=== PATIENT | male | born 1950 | race Caucasian/White ===

== ENCOUNTER 2019-11-15 18:41 | Observation (INO) ==
--- NOTE | 2019-11-15 19:26 | PROVIDER DOCUMENTATION ---
HPI-Rash/Wound/ReCheck - General Chief Complaint: Wound Recheck Stated Complaint: RECHECK-NAIL IN FOOT Time Seen by Provider: 11/15/19 19:18 Source: patient Allergies/Adverse Reactions: Allergies Allergy/AdvReac Type Severity Reaction Status Date / Time No Known Allergies Allergy Verified 11/15/19 20:07 Home Medications: Home Medication List Medication Instructions Recorded Confirmed Last Taken Type NK [No Home Medications] 11/15/19 11/15/19 Unknown History - History of Present Illness-Dermatology Nature of Presenting Problem: 69 YOM with DM presents with c/o worsening redness, pain and now drainage to the R foot after stepping on a nail 6 wks ago. He was given tdap and clina which has been completed. He denies fever, chills, n/v/d, CP, SOB Location: reports: feet (R) Quality: reports: painful Severity: reports: moderate Onset/Duration: reports: 1 week ago (intial injury 6 wks ago) Timing: reports: still present Context/Associated Symptoms: reports: stab wound (from nail) Identifiable cause?: Yes (stepped on a nail ) Locality of Occurance: Home Similar Symptoms Previously?: Yes Recently seen or treated by another doctor?: Yes (6 wks ago for inital tx) Review of Systems - Adult - REVIEW OF SYSTEMS - ADULT Constitutional: reports: no symptoms reported. denies: chills, fever Eyes: reports: no symptoms reported. denies: see HPI, discharge, dry eyes, decreased vision, blurred vision, double vision, eye pain, redness, other Ears, Nose, Mouth & Throat: reports: no symptoms reported. denies: see HPI, ear discharge, ear pain, hearing loss, tinnitus, epistaxis, sinus problem, nose pain, loose teeth, mouth/dental pain, mouth swelling, hoarseness, throat pain, throat swelling, other Cardiovascular: reports: no symptoms reported. denies: see HPI, chest pain, edema, heart murmur, irregular heart rate, orthopnea, palpitations, poor circulation, PND, syncope, other Respiratory: reports: no symptoms reported. denies: see HPI, chronic cough, cough, dyspnea on exertion, excessive sputum production, hemoptysis, pleurisy, shortness of breath, wheezing, other Gastrointestinal: reports: no symptoms reported. denies: see HPI, abdominal pain, hematemesis, constipation, diarrhea, difficulty swallowing, frequent heart burn, nausea, poor appetite, rectal bleeding, vomiting, other Genitourinary: reports: no symptoms reported. denies: see HPI, dysuria, discharge, frequency, flank pain, frequent UTI's, hematuria, hesitency, incontinence, urinary retention, urgency, other Musculoskeletal: reports: no symptoms reported. denies: see HPI, bone pain, back pain, frequent leg cramps, joint pain, joint swelling, muscle aches, muscle weakness, neck pain, other Integumentary: reports: see HPI, skin sores/ulcer. denies: no symptoms reported, hives, hair loss, itching, mole changes, nail changes, rash, skin thickening, other Neurological: reports: no symptoms reported. denies: see HPI, ataxia, dizziness/vertigo, headache/migraines, loss of balance, numbness, paresthesia, seizure, slurred speech, syncope, tremors, other Psychiatric: reports: no symptoms reported. denies: see HPI, anxiety, anti- depressant use, alcohol/drug dependence, depression, emotional problems, insomnia, panic attacks, suicidal thoughts, other Endocrine: reports: no symptoms reported. denies: see HPI, change in skin pigment, excessive sweating, goiter, cold intolerance, heat intolerance, increased hunger, increased thirst, polyuria, other Hematologic/Lymphatic: reports: no symptoms reported. denies: see HPI, blood clots, easy bruising, low blood count, lymphedema, prolonged bleeding, swollen lymph nodes, transfusions, other Allergic/Immunologic: reports: no symptoms reported. denies: see HPI, allergic reactions, allergic rhinitis, asthma, eczema, food allergy, frequent infections, hay fever, hives, positive PPD, urticaria, other Past History - Adult - PAST MEDICAL HISTORY-ADULT Review of Records: reports: Old Records Reviewed, Nursing Assessment Review, Social history reviewed & non-contributory. Major Childhood Illnesses: reports: denies history Cardiovascular: reports: HTN Respiratory: reports: denies history Gastrointestinal: reports: denies history Obstetrical/Gynecological: reports: denies history Genitourinary: reports: denies history Musculoskeletal: reports: denies history Neurological: reports: denies history Endocrine/Immune: reports: Diabetes Other Conditions: reports: denies history - PRIOR SURGERIES/PROCEDURES Surgical/Procedure History: reports: reviewed, not pertinent - IMMUNIZATION STATUS Childhood Immunizations: See Nurse Assessment Flu Vaccine: See Nurse Assessment - FAMILY HISTORY Family History: reviewed, not pertinent Physical Exam-General - PHYSICAL EXAM-ADULT Initial Vital Signs Reviewed: Yes - CONSTITUTIONAL General Appearance: appears well, alert, no apparent distress - EYES Eyes: PERRL/EOMI, pink conjunctivae - HEAD, EARS, NOSE, MOUTH & THROAT HENMT: normocephalic/atraumatic, moist mucous membranes, normal ENT inspection - NECK Neck: non-tender, full range of motion, supple - RESPIRATORY Respiratory: chest non-tender, lungs clear, normal breath sounds, no pleuratic chest pain, no respiratory distress, no accessory muscle use - CARDIOVASCULAR Cardiovascular: normal peripheral pulses, regular rate, rhythm, no edema, no gallop, no JVD, no murmur - GASTROINTESTINAL (ABDOMEN) Abdominal Exam: normal bowel sounds, non tender, soft, no organomegaly, no pulsatile mass - LYMPHATIC Lymphatic: no adenopathy - MUSCULOSKELETAL Back Exam: normal inspection, no CVA tenderness, no vertebral tenderness Extremity: no calf tenderness, normal capillary refill, erythema (R foot), pedal edema (R foot), swelling (R foot), tenderness (R foot). negative: slow capillary refill Peripheral Pulses: radial (R): 2+, radial (L): 2+ - SKIN Integumentary: normal color, normal turgor, warm/dry - NEUROLOGIC Neurologic: grossly normal, abnormal senior account representative II-XII, motor weakness - PSYCHIATRIC Psych/Mental Status: normal mood/affect, oriented x 3 Progress - PLAN OF CARE/RESULTS Progress/Plan/Lab Results: Vital Signs - 8 hr 11/15/19 18:58 11/15/19 20:53 11/15/19 21:50 Temperature 98.7 F 99.6 F 99.1 F Pulse Rate 95 H 99 H 81 Respiratory Rate 16 27 H 25 H Blood Pressure 161/85 158/86 147/90 O2 Sat by Pulse Oximetry 95 93 L 95 Laboratory Results - last 24 hr 11/15/19 11/15/19 11/15/19 20:28 20:28 20:28 WBC 10.24 RBC 5.49 Hgb 17.9 Hct 49.8 MCV 90.7 MCH 32.6 H MCHC 35.9 RDW Std Deviation 13.5 Plt Count 204 MPV 11.0 H Neut % (Auto) 76.0 H Lymph % (Auto) 13.5 L Kay % (Auto) 7.8 Eos % (Auto) 2.5 Baso % (Auto) 0.2 Neut # (Auto) 7.78 H Lymph # (Auto) 1.38 Kay # (Auto) 0.80 H Eos # (Auto) 0.26 Baso # (Auto) 0.02 Sodium 137 Potassium 3.3 L Chloride 95 L Carbon Dioxide 26 Anion Gap 16 BUN 5 L Creatinine 0.6 L Estimated GFR/1.73 m2 > 60 BUN/Creatinine Ratio 8 Glucose 341 H Calculated Osmolality 285 Calcium 9.5 Total Bilirubin 0.69 AST 11 ALT 15 Alkaline Phosphatase 124 H Total Protein 7.1 Albumin 4.3 Globulin 2.8 Albumin/Globulin Ratio 1.5 Plasma Lactate 1.1 Orders Category Date Time Status FOOT COMPLETE LEFT [RAD] Stat Exams 11/15/19 19:21 Completed BLOOD CULTURE [BLDCUL] Stat Lab 11/15/19 20:28 Results CBC WITH ELECTRONIC DIFF [HEME] Stat Lab 11/15/19 20:28 Completed COMPREHENSIVE METABOLIC PANEL [CHEM] Stat Lab 11/15/19 20:28 Completed LACTATE, PLASMA [CHEM] Lab 11/15/19 23:45 Uncollected LACTATE, PLASMA [CHEM] Lab 11/16/19 02:45 Uncollected LACTATE, PLASMA [CHEM] Stat Lab 11/15/19 20:28 Completed Insulin Lispro [Humalog] Med 11/15/19 21:49 Discontinued See Protocol SUBQ NOW ONE Piperacillin/Tazobactam [Zosyn] 3.375 gm Med 11/15/19 19:54 Discontinued 0.9% Sodium Chloride Inj [Ns] 50 ml IV NOW Potassium Chloride E.r. [Klor-Con] Med 11/15/19 21:49 Discontinued 20 meq PO NOW ONE Vancomycin 1 gm/Ns Med 11/15/19 19:54 Discontinued 1 gm in 250 ml IV NOW Result Diagrams: 11/15/19 20:28 11/15/19 20:28 - XRAY 1 XRAY: Right XRAY Study: Foot Impression: See EMR Report (EXAM: FOOT COMPLETE LEFT HISTORY: Diabetic wound concern for osteo TECHNIQUE: Three views COMPARISON: 10/01/2019 FINDINGS: No fracture. No dislocation. Soft tissue swelling beneath the metatarsophalangeal joints. No bone erosions. No change in the periosteal reaction adjacent to the second and fourth metatarsals. IMPRESSION: Stable exam. An MRI is recommended if clinical suspicion persists. Electronically signed by Eliot Becker 11/15/2019 7:41 PM 11/15/191940 Interpreting Physician: Eliot Becker MD Dictated Date/Time: 11/15/191938 cc: Lorena Bullock; GRACIA AGUERO) - CONSULTS/PCP/HOSPITALIST Notification #1 *Consult/PCP/Hospitalist*: Dr. oleary Time Discussed: 22:34 Consult Disposition: Admit Departure - Departure Date of Disposition Decision: 11/15/19 Time of Disposition Decision: 22:06 DIAGNOSIS: Penetrating foot wound, Cellulitis, Failure of outpatient treatment, Hyperglycemia due to type 2 diabetes mellitus Disposition: ADMITTED INPATIENT 09 Certified Medical Emergency: Emergent Condition: Stable Referrals and Follow-Ups: GRACIA AGUERO CRNP [Primary Care Provider] - Discharge Education: Steps to Quit Smoking, [id number] - Critical Care Note This patient required my direct & personal management of CC.: No Attestation - Physician/ KRISTINA Attestation Patient care was provided by Advanced Practice Provider:: Yes Advanced Practice Provider:: Lorena Bullock Advanced Practice Provider documentation review:: The Mid-level provider documentation, treatment plan and medical decision making was reviewed by the physician who agrees with all treatment and medical decision making by the [facility]. The physician spent face to face time with patient:: Yes (Dr. Watts) Advanced Practice Provider documentation review:: Supervising physician onsite and consulted in the evaluation and care of this patient. The physician did have a face to face encounter with the patient.
--- NOTE | 2019-11-15 19:43 | Diag Imaging Result Doc PS360 ---
EXAM: FOOT COMPLETE LEFT HISTORY: Diabetic wound concern for osteo TECHNIQUE: Three views COMPARISON: 10/01/2019 FINDINGS: No fracture. No dislocation. Soft tissue swelling beneath the metatarsophalangeal joints. No bone erosions. No change in the periosteal reaction adjacent to the second and fourth metatarsals. IMPRESSION: Stable exam. An MRI is recommended if clinical suspicion persists. Electronically signed by Eliot Becker 11/15/2019 7:41 PM
[2019-11-15] MEDS ORDERED: VANCOMYCIN 1 GM/NS 1 GM/250 ML IVPB IV ONE (19:54)
[2019-11-15] MEDS ORDERED: ZOSYN 3.375 GM in NS 50 ML IV ONE (19:54)
[2019-11-15 21:06] LABS: BASO# 0.02 X1000 (0.0-0.2); BASO% 0.2 % (0.0-0.8); EOS# 0.26 X1000 (0.0-0.7); EOS% 2.5 % (0.0-10.0); HEMATOCRIT 49.8 % (42.0-52.0); HEMOGLOBIN 17.9 g/dL (14.0-18.0); LYMPH# 1.38 X1000 (1.2-3.4); LYMPH% 13.5 % (20.5-51.1); MCH 32.6 PG (27-31); MCHC 35.9 g/dL (33-37); MCV 90.7 FL (81-99); MONO% 7.8 % (1.7-9.3); NEUT# 7.78 X1000 (1.4-6.5); PLT 204 X1000 (130-400); RBC 5.49 XMIL (4.7-6.1); RDW 13.5 % (11.5-14.5); WBC 10.24 X1000 (4.8-10.8)
[2019-11-15 21:22] LABS: AGAP 16; ALB/GLOB RATIO 1.5; ALBUMIN 4.3 g/dL (3.5-5.0); ALKALINE PHOSPHATASE 124 U/L (32-122); BUN 5 mg/dL (8-22); CALCIUM 9.5 mg/dL (8.8-10.2); CHLORIDE 95 mmol/L (98-107); COSMO 285; CREATININE 0.6 mg/dL (0.7-1.2); ESTIMATED GFR > 60; GLUCOSE 341 mg/dL (70-104); GOT 11 U/L (10-34); GPT 15 U/L (10-44); POTASSIUM 3.3 mmol/L (3.5-5.1); SODIUM 137 mmol/L (136-145); TCO2 26 mmol/L (25-35); TOTAL BILIRUBIN 0.69 mg/dL (0.20-1.00); TOTAL PROTEIN 7.1 g/dL (6.3-8.3)
[2019-11-15] MEDS ORDERED: KLOR-CON PO ONE (21:49)
[2019-11-15] MEDS ORDERED: HUMALOG SUBQ ONE (21:49)
[2019-11-15 23:25] LABS: INR 0.96; PROTIME 12.9 Seconds (11.0-16.0)
[2019-11-15 23:26] LABS: PTT 32.8 Seconds (22.3-41.8)
[2019-11-15 23:40] LABS: HEMOGLOBIN A1C 11.9 % (4.8-6.0)
--- NOTE | 2019-11-16 00:35 | EKG Report ---
Test Performed on : 11/16/2019 00:24:37 AM Test Reason : Chest Pain Blood Pressure : / mmHG Vent. Rate : 085 BPM Atrial Rate : 085 BPM P-R Int : 154 ms QRS Dur : 092 ms QT Int : 392 ms P-R-T Axes : 075 -24 058 degrees QTc Int : 466 ms Sinus rhythm. with occasional premature ventricular complexes. and premature atrial complexes. Low voltage QRS Possible Lateral infarct , age undetermined Inferior infarct (cited on or before 16-NOV-2019) Abnormal ECG When compared with ECG of 16-NOV-2019 00:24, (Unconfirmed) premature atrial complexes. are now present Confirmed by Duc WHEAT, Zaki Ware ([id number]) on 11/17/2019 3:34:04 PM
[2019-11-16 01:19] LABS: C REACTIVE PROT QUANT 41.63 mg/L (0.00-5.00)
[2019-11-16] MEDS: TYLENOL PO PRN ×3 (01:31→12:50)
[2019-11-16] MEDS ORDERED: DUONEB (A & A) INH PRN (02:48)
[2019-11-16] MEDS ORDERED: NICODERM PATCH TD PRN (02:49)
[2019-11-16] MEDS ORDERED: ZOFRAN IV PRN (02:49)
[2019-11-16] MEDS ORDERED: TYLENOL PO PRN (02:49)
[2019-11-16] MEDS ORDERED: VANCOMYCIN IV PER PHARMACY MISC SCH (03:00)
[2019-11-16] MEDS: ZOSYN 3.375 GM in NS 50 ML IV SCH ×3 (04:31→15:38)
[2019-11-16] MEDS ORDERED: VANCOMYCIN 1 GM/NS 1 GM/250 ML IVPB IV ONE (05:00)
--- NOTE | 2019-11-16 07:02 | Diag Imaging Result Doc PS360 ---
EXAM: CHEST-2 VIEWS 11/16/2019 HISTORY: SOB,cough TECHNIQUE: PA and lateral chest COMMENT: There is no evidence of acute cardiac or pulmonary disease. There are no previous studies available for comparison. IMPRESSION: No evidence of acute disease. Electronically signed by Mario Tapia 11/16/2019 6:59 AM
[2019-11-16 07:13] LABS: BASO# 0.03 X1000 (0.0-0.2); BASO% 0.4 % (0.0-0.8); EOS% 3.6 % (0.0-10.0); LYMPH# 2.36 X1000 (1.2-3.4); LYMPH% 28.1 % (20.5-51.1); MCH 31.1 PG (27-31); MCV 91.4 FL (81-99); MONO# 0.65 X1000 (0.11-0.59); MONO% 7.7 % (1.7-9.3); MPV 10.4 FL (7.4-10.4); NEUT# 5.05 X1000 (1.4-6.5); NEUT% 60.2 % (42.2-75.2); PLT 190 X1000 (130-400); RBC 5.14 XMIL (4.7-6.1); RDW 13.3 % (11.5-14.5); WBC 8.39 X1000 (4.8-10.8)
[2019-11-16 07:41] LABS: AGAP 13; BUN 5 mg/dL (8-22); CALCIUM 8.7 mg/dL (8.8-10.2); CHLORIDE 98 mmol/L (98-107); COSMO 281; CREATININE 0.6 mg/dL (0.7-1.2); ESTIMATED GFR > 60; GLUCOSE 282 mg/dL (70-104); POTASSIUM 3.3 mmol/L (3.5-5.1); SODIUM 137 mmol/L (136-145); TCO2 26 mmol/L (25-35)
--- NOTE | 2019-11-16 08:58 | PROGRESS NOTE ---
DATE: 11/16/2019 Mr. Amanda was admitted with a diabetic foot wound concerning for osteomyelitis. X-ray showed no fracture, no dislocation in the left foot, soft tissue swelling beneath the metatarsal joints. No bony erosions. No change in periosteal reaction adjacent to the second and fourth metatarsal. MRI was recommended for their suspicion. He denies any pain at this time and appears comfortable. No swelling in the foot. I really do not appreciate any erythema. PHYSICAL EXAMINATION: Temperature 97.9 degrees, pulse 75, respirations 18, blood pressure 141/65. Pupils are equal and round. No distended neck veins. Lungs are clear in all lung galvan. Cardiovascular Examination: Regular rhythm and rate without murmur or S3. Abdomen is soft. Skin is warm and dry. LABORATORY DATA: White count 8390, hematocrit is 47, platelet count 190,000. Sodium 137, potassium 3.3, chloride 98, BUN 5, creatinine 0.6. AST is 11, ALT is 15, CK is 55, albumin is 4.3. Prothrombin time is 12.9, PTT is 32. Note, his chest x-ray, no evidence of acute disease. REVIEW OF HIS ORDERS: He is currently getting some breathing treatments with albuterol. He is on a nicotine patch 21 mg daily. He is on vancomycin and piperacillin for antibiotics. I guess we could see how we do clinically. Could pursue an MRI of the foot. We did obtain a wound culture. We will wait on culture results as well. cc: Zaki Xavier MD
--- NOTE | 2019-11-16 10:02 | HISTORY AND PHYSICAL ---
PRIMARY CARE PROVIDER: Lisy Workman. DATE AND TIME: 11/15/2019 at 2330. CHIEF COMPLAINT: Left foot wound. HISTORY OF PRESENT ILLNESS: Mr. Amanda is a 69-year-old male, who did initially present to the ER on 11/01/2019 after sustaining a penetrating/puncture wound to the sole of his left foot. The patient reportedly states that he stepped on a nail or a piece of wire. He did come into the ER for further evaluation. He was diagnosed with cellulitis and given prescription for a 7-day course of clindamycin. The patient states that the clindamycin caused him to be nauseated, so he took approximately 3 days of this and then stopped and did not take any for about 2 weeks, though his foot wound did worsen, so he started taking the rest of the antibiotics. The patient states that he now has finished all the antibiotic dose. Over the last few days, his left foot wound and left foot has had worsening pain, erythema, warmth, swelling, and was draining white purulent drainage. He had reported some chills. He denies any known fever or body aches. He did present to the ER today for further evaluation of his left foot wound. Also, the patient does report that for a couple months now that he has had intermittent shortness of breath. This is mainly shortness of breath with exertion. He also reports that he has had a chronic cough for years, though states recently he has had some greenish-colored sputum. He also did report that earlier in the afternoon prior to arrival to the ER, he did have some right- sided chest pain for which he described as like a gas, indigestion-type pain. It lasted a brief period and subsided on its own and has not returned since. He denied any chest pain at present. He stated it was nonradiating. He also reports that he has had intermittent chronic diarrhea for approximately 4 to 5 years. He states this has not worsened. He did report that he has had a colonoscopy within the last year and was told that it was normal, that everything looked good. He denies any hematochezia or melena. Unfortunately, the patient states that he has not been compliant with following up with his primary care physician and specialists, as well as taking medications. He does have a primary care provider, Lisy Workman, though states he has not seen her in 6 months. He also reports that in May he was supposed to followup with a urologist in [place]. He reports that they had been watching a spot on his kidney and a spot on his prostate, and that he was supposed to be seen in May for followup, though had not done so. The patient reports that he previously took metformin and lisinopril, though has not taken anything for his diabetes in over 3 months. He denies any headache, dizziness. He denies any abdominal pain or nausea, vomiting. He denies any dysuria. Other than the pain and swelling at his wounds on his left foot, he has no other pain, swelling, numbness, tingling in his extremities. Upon evaluation in the ER, vital signs have been within normal limits. His blood pressure was slightly elevated upon arrival, though has improved at this time. He has been afebrile. He had no leukocytosis noted. His glucose was elevated at 341. His hemoglobin A1c is 11.9. He also was mildly hypokalemic. Left foot x-ray performed in the ER showed no fracture or dislocation, but some soft tissue swelling beneath the metatarsophalangeal joint, though no bony erosion. Also given his reported shortness of breath and cough, we did perform a chest x-ray which showed no evidence of acute disease. At this time, the patient will be admitted for further treatment/evaluation of his left foot cellulitis and penetrating wound. REVIEW OF SYSTEMS: A 14 point review of systems was conducted with the patient. All were negative, except for pertinent positives mentioned in the HPI. PAST MEDICAL HISTORY: 1. COPD. 2. Diabetes mellitus type 2. 3. Hypertension. 4. Hyperlipidemia. 5. BPH. 6. Nicotine dependence. 7. Daily alcohol use. 8. 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 The patient does have BPH, though states they have been watching an area on his prostate, though he has not followed up as mentioned above in the HPI. He also states that there is a spot on one of his kidneys that they have been watching as well. PAST SURGICAL HISTORY: The patient reports no previous surgeries. SOCIAL HISTORY: The patient is a current smoker. He does smoke 1-1/2 packs of cigarettes per day, and has done so for 58 years. He also reports daily alcohol use of two 12 ounce beers a day, although he denies any reported withdrawal symptoms or seizures when he goes for periods of time without drinking. He denies any illicit drug use. FAMILY HISTORY: Positive for his mother having history of lung cancer. His father secondary to pneumonia. ALLERGIES: Patient reports no known allergies. HOME MEDICATIONS: The patient reports he is not taking any home medications at this time. He states that he previously was taking prescriptions up until 3 or 4 months ago. The only 2 prescriptions that he remembers the name of are his metformin for which he states he used to take 100 mg twice daily and lisinopril 20 mg daily for his blood pressure. DIAGNOSTIC DATA: White blood cell count is 10,240, hemoglobin 17.9, hematocrit 49.8, platelet count is 204. PT 12.9, INR 0.96, PTT is 32.8. Sodium 137, potassium 3.3, chloride 95, serum bicarbonate is 26. BUN 5, creatinine 0.6, GFR greater than 60. Glucose 341. Hemoglobin A1c is 11.9, calcium 9.5, phosphorus 3.5, magnesium 1.8. Liver function tests within normal limits, except for alkaline phosphatase elevated at 124. CK 66, troponin 19. C- reactive protein is 41.63. Plasma lactate 1. Left foot x-ray showed no fracture, no dislocation, but soft tissue swelling beneath the metatarsophalangeal joint. There was no bone erosion. There was no change in the periosteal reaction adjacent to the 2nd and 4th metatarsals. The impression was noted to be a stable exam, though an MRI is recommended if clinical suspicion persists. Chest x-ray, 2 views, showed no evidence of acute disease. EKG showed sinus rhythm with occasional PVCs at a rate of 80 with a QTc of 445. PHYSICAL EXAMINATION: VITAL SIGNS: Temperature 98.5 degrees, heart rate 76, respirations 20, blood pressure is 134/74, oxygen saturation was 90% nasal cannula at 2 L. GENERAL: Mr. Amanda is a pleasant 69-year-old male, who is resting in the ER stretcher. He was in no acute distress. He was awake, alert, and able to answer questions appropriately. HEENT: Head is atraumatic, normocephalic. Pupils are equal, round, reactive to light, were 3 mm bilaterally and brisk. Oral mucosa is moist. Oropharynx is clear. NECK: Supple. Trachea midline. CARDIOVASCULAR: Patient has S1, S2 present. No murmurs, gallops, rubs appreciated with a regular rate and rhythm. PULMONARY: Patient has symmetrical chest expansion bilaterally. Lung sounds clear to auscultation in bilateral full galvan. ABDOMEN: Soft, nondistended, nontender. Bowel sounds are present in all 4 quadrants, were normoactive. EXTREMITIES: No cyanosis or edema noted. Pulse, motor, and sensory were intact in all extremities. Radial and pedal pulses were 2+ bilaterally. The patient does have erythema, warmth and some mild swelling noted to the distal portion of his left foot from about the mid foot down to his toes. This is on the dorsal and plantar surfaces. On the plantar surface of the ball of his left foot, he does have a puncture wound noted. The patient reported this to have white purulent drainage, but at this time it is draining a clear drainage. Capillary refill is less than 3 in all extremities. INTEGUMENTARY: The patient's skin is pink, warm, and dry except for above- mentioned abnormality to the patient's left foot. NEUROLOGICAL: Patient is alert, oriented to person, place, time, and situation. He is able to move all extremities. There were no focal neurological deficits noted. ASSESSMENT AND PLAN: 1. Left foot cellulitis and penetrating wound. For treatment of this, we have obtained blood cultures and a wound culture. I would like to note that a right foot wound culture order was put in by accident, though the lab has made a note of this and corrected this on their side, and the wound culture that has been obtained was obtained from the patient's left foot wound. He was placed with antibiotic coverage of vancomycin and Zosyn. We will await culture results and continue to follow. 2. Uncontrolled diabetes mellitus type 2. The patient's hemoglobin A1c was 11.9. We have placed him on pattern fingerstick blood sugars with sliding scale regular insulin per low-dose protocol. We will continue to monitor this closely. He has been placed on a diabetic and heart healthy diet as well. 3. Mild hypokalemia. The patient has been given 20 mEq of potassium chloride in the ER. His magnesium is within normal range at 1.8. We will recheck a potassium level in the morning. 4. History of hypertension. The patient states he previously used to take lisinopril, but is not taking any medications for hypertension at this time. His last blood pressure was 134/74. We will continue to monitor and implement antihypertensives if necessary. 5. Nicotine dependence. We will litigation counsel patient on the importance of smoking cessation throughout his admission and upon discharge. We have placed orders for nicotine patch. 6. The patient does report daily alcohol use of drinking two 12 ounce beers a day. He denies any history of alcohol withdrawal when he goes without drinking. He denies any history of alcohol withdrawal seizures as well. We will monitor him closely for any signs or symptoms of alcohol withdrawal. 7. Deep vein thrombosis prophylaxis. Provided with sequential compression devices. The patient has been placed on the medical floor with telemetry. He will have vital signs every 8 hours, do strict intake and output. We will repeat a CBC, BMP and magnesium in the morning. Other orders and recommendations pending hospital course, diagnostic studies, and physician evaluation. Dictated by YASH Dasilva for Teja Ross MD I have performed a face to face diagnostic evaluation. Labs/xrays reviewed. Exam- Chest- clear, CV- regular , Ext- Left foot erythema. A/P- Left foot cellulitis/wound- Admit, wound culture, IV ABX. Dr. Ross. cc: Teja Ross MD [facility]
[2019-11-16] MEDS: HUMULIN R SUBQ SCH ×2 (11:14→16:20)
--- NOTE | 2019-11-16 11:25 | Diag Imaging Result Doc PS360 ---
EXAM: MRI LOWER EXT W/WO CON-LEFT INDICATION: L foot ulcer , pain r/o osteomyelitis TECHNIQUE: COMPARISON: No prior MRIs available for comparison. FINDINGS: There is soft tissue edema and enhancement at the plantar aspect of the forefoot medially surrounding a small skin defect consistent with cellulitis. There is no abnormal marrow signal involving the bones directly underlying this to indicate osteomyelitis. There is mild focal increased signal on all sequences involving the marrow cavity of the distal shaft of the first metatarsal. However, this is not directly underlie the area of cellulitis and there is no evidence of overlying cortical erosion making it doubtful that it actually represents osteomyelitis but it cannot completely be excluded. It may simply represent a small focus of red marrow conversion or a stress phenomenon. If desired, a three-phase bone scan of the feet may better clarify this. There is a similar focus of increased signal associated with the dorsal aspect of the medial cuneiform with no underlying soft tissue edema. The marrow signal is unremarkable, otherwise. The tendinous structures of the foot appear to be intact. IMPRESSION: 1.Cellulitis at the plantar aspect of the medial forefoot. 2.Small focus of increased marrow cavity signal associated with the distal shaft of the first metatarsal that does not directly underlie the cellulitis. Osteomyelitis is doubtful. Please see above discussion. 3.Similar focus of increased marrow signal at the superior aspect of the medial cuneiform. Electronically signed by Deyvi Ann 11/16/2019 11:23 AM
[2019-11-16 15:49] VITALS: BP 144/74
--- NOTE | 2019-11-16 15:54 | DISCHARGE SUMMARY ---
ADMISSION DATE: 11/15/2019 DISCHARGE DATE: 11/16/2019 He is a patient who sees Lisy Spears. He came in with left foot wound. A 69-year-old white male initially presented to the emergency room on 11/01/2019 after sustaining a penetrating puncture wound to the sole of his left foot. Patient reportedly states he stepped on a nail or piece of wire. He did come in to the ER for further evaluation. He was diagnosed with cellulitis and given a prescription for a 7 day course of clindamycin. He states the clindamycin caused him to be nauseated, so he took approximately 3 days of this and then stop and did not take any for about 2 weeks. His foot wound did worsen, so he started taking the rest of the antibiotics. The patient states that he finished the antibiotic course over the last few days. His left foot wound and his left foot had worsening pain, erythema, warmth and swelling and draining white purulent drainage. He reported some chills. Denied any known fever or body aches. He did present to the emergency room with further evaluation of left foot wound. He reported a couple months now he has had intermittent shortness of breath, mainly shortness of breath with exertion, chronic cough for years. Recently, he has had some greenish-colored sputum. He did have some right-sided chest pain and reportedly came to the emergency room, it felt like gas and indigestion and then it subsided. In the emergency room, blood pressure was slightly elevated. PAST MEDICAL HISTORY: 1. COPD. 2. Diabetes mellitus type 2. 3. Hypertension. 4. Hyperlipidemia. 5. Benign prostatic hypertrophy. 6. Nicotine dependence. 7. Daily alcohol use. 8. History of known renal disease and prostate disease. He has benign prostatic hypertrophy, had been watching his prostate by his report. ADMISSION DIAGNOSIS: Left foot cellulitis with erythema and swelling on the dorsum of the ball of his foot. We obtained blood cultures and there was no growth. Wound culture required more intubation. X-rays did not reveal any bone involvement, but we went ahead and got an MRI and it did show some cellulitis of plantar aspect of the medial forefoot, some focus of increase in marrow cavity signal associated with distal shaft of the first metatarsal that does not directly lie underlie the cellulitis, so osteomyelitis was doubtful. He had no more erythema, no more pain, swelling had gone down, and I will discharge him home on some Keflex 500 mg twice a day for another 7 days. He was not taking any other medications. Note that his blood sugars have been running high. We did address the fact that he probably has underlying diabetes and needs to just have some followup with that. cc: Zaki Xavier MD
[2019-11-16] MEDS ORDERED: VANCOMYCIN 1,200 MG in NS 250 ML IV SCH (17:00)
== END 2019-11-16 16:31 | disposition home or self-care (01) ==
LOC: ED 18:41 → 4N 23:50 → SUATTDRO 23:50 → INTOOBSV 23:50
PROVIDERS: ATTEND Emergency Medicine